=== PATIENT | female | born 1930 | race Caucasian/White ===

== ENCOUNTER 2017-02-14 08:31 | Outpatient (CLI) | payer MEDICARE, OTHER ==
--- NOTE | 2017-02-14 12:35 | CT ---
CT OF HEAD NONCONTRAST: INDICATION: Memory loss. FINDINGS: Parenchymal atrophy is present. Ventricular system is age appropriate in size. 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 No intracranial hemorrhage, mass effect, or midline shift. IMPRESSION: 1. No acute intracranial abnormality. 2. Age-expected intracranial findings as discussed above. POS: [place]
== END 2017-02-14 08:32 | disposition home or self-care (01) ==
LOC: SCSCT 08:31
PROVIDERS: ATTEND Internal Medicine Geriatric Medicine
DX: F03.90 Unspecified dementia, unspecified severity, without behavioral disturbance, psychotic disturbance, mood disturbance, and anxiety (principal)
CPT/HCPCS: 70450

== ENCOUNTER 2017-09-19 08:03 | Outpatient (CLI) | payer MEDICARE, OTHER ==
--- NOTE | 2017-09-19 10:01 | ULT ---
RIGHT UPPER QUADRANT ULTRASOUND: DTAE: 09/19/17. PROVIDED CLINICAL HISTORY: Gallstones. FINDINGS: Visualized portions of the pancreas appear normal. The liver demonstrates no mass or intrahepatic bi liary ductal dilatation. The common duct is prominent measuring about 7-8 mm. There is no intrahepa tic biliary ductal dilatation evident. Shadowing echogenic focus is noted within the gallbladder lum en near the gallbladder neck compatible with gallstone. There is gallbladder wall thickening. No pe richolecystic fluid or sonographic Edwards's sign. The right kidney demonstrates no hydronephrosis or mass. IMPRESSION: 1. Cholelithiasis with gallbladder wall thickening. Sonographic Edwards's sign is documented as nega tive. Correlate with concerns for acute cholecystitis. 2. Mildly prominent common duct, possibly on the basis of patient age. POS: [facility]
== END 2017-09-19 08:04 | disposition home or self-care (01) ==
LOC: SCSULT 08:03
PROVIDERS: ATTEND Internal Medicine Gastroenterology
DX: R93.2 Abnormal findings on diagnostic imaging of liver and biliary tract (principal); R93.8 Abnormal findings on diagnostic imaging of other specified body structures; K80.20 Calculus of gallbladder without cholecystitis without obstruction
CPT/HCPCS: 76705